=== PATIENT | female | born 1965 | race African-American/Black ===

== ENCOUNTER 2021-04-22 10:36 | Emergency (ER) | payer BC ==
[~2021-04-22] VITALS: Ht 172.7 cm; Wt 89.4 kg
--- NOTE | 2021-04-22 10:52 | PHYS DOC ---
General Adult EDM: Chief Complaint: ABDOMINAL PAIN HPI: HPI: Patient is a 56 year old female who presents with epigastric abdominal pain, radiating through to her back, symptoms began this morning, shortly prior to arrival. She reports mild nausea without vomiting. She denies constipation or diarrhea. She reports urinary urgency. She denies dysuria. She has had a previous hysterectomy. She denies vaginal discharge or bleeding. She has a history of frequent epigastric abdominal pain. A few months ago, when she lived in [facility], she was seen in an ER there, and at that time she had abdominal pain with nausea, vomiting and diarrhea. She was dehydrated. She had a CT of the abdomen and pelvis which was reportedly negative. She moved back here to the area about 5 weeks ago, she does not currently have a primary care physician. She also does report that she gives herself monthly enemas, though she denies constipation or diarrhea symptoms. She reports that she is just always done this. She did give herself an enema last night. Review of Systems: Review of Systems: Constitutional: Denies fever or chills. [] HENT: Denies nasal congestion or sore throat. [] Respiratory: Denies cough or shortness of breath. [] Cardiovascular: Denies chest pain or edema. [] GI: Epigastric abdominal pain, nausea, denies vomiting or bowel habit changes. : Denies dysuria. Reports urinary urgency and cloudy urine. Denies gross hematuria. Musculoskeletal: Back pain radiating from abdomen. Integument: Denies rash. [] Neurologic: Denies headache, focal weakness or sensory changes. [] Psychiatric: Denies depression or anxiety. [] Heart Score: C/O Chest Pain: No Risk Factors: Risk Factors: DM, Current or recent (<one month) smoker, HTN, HLP, family history of CAD, obesity. Risk Scores: Score 0 - 3: 2.5% MACE over next 6 weeks - Discharge Home Score 4 - 6: 20.3% MACE over next 6 weeks - Admit for Clinical Observation Score 7 - 10: 72.7% MACE over next 6 weeks - Early Invasive Strategies Physical Exam: PE: Constitutional: Well developed, well nourished, no acute distress, non-toxic appearance. [] HENT: Normocephalic, atraumatic, mucous membranes are moist Eyes: Sclera are clear and anicteric Neck: Normal range of motion, no tenderness, supple, no stridor. Trachea is midline Cardiovascular:Heart rate regular rhythm, +2 radial and dorsalis pedis pulses bilaterally Lungs & Thorax: Bilateral breath sounds clear to auscultation [] Abdomen: Abdomen is soft, nondistended. Epigastric tenderness to palpation, mild voluntary guarding. No rebound tenderness. No lower abdominal tenderness. No right or left upper quadrant tenderness. No palpable pulsatile mass. No palpable mass organomegaly. Left sided CVA tenderness. No flank or abdominal ecchymoses Skin: Warm, dry, no erythema, no rash. No jaundice Back: Left sided CVA tenderness. Full range of motion. No midline tenderness or step off. Extremities: No tenderness, no cyanosis, no clubbing, ROM intact, no edema. No calf tenderness Neurologic: Alert and oriented X 3, normal motor function, normal sensory function, no focal deficits noted. [] Psychologic: Affect normal, judgement normal, mood normal. [] EKG: EKG: [] Radiology/Procedures: Radiology/Procedures: IMAGING REPORT Signed PATIENT: NOAH JAIN MACCOUNT: [id number] : 1965 LOCATION: ER AGE: 56 SEX: F EXAM STATUS: REG ER ORD. PHYSICIAN: LIONEL MORA DO REASON: abdominal pain, pyelonephritis PROCEDURE: ABDOMEN COMPLETE EXAM: Abdomen sonogram. HISTORY: Pain. TECHNIQUE: Sonographic imaging of the abdomen was performed. COMPARISON: None. FINDINGS: The liver is upper normal in size. No focal hepatic lesion is seen. The gallbladder is unremarkable. The common bile duct is normal in caliber. The kidneys are normal in size. There is a 3.8 cm simple cyst within the upper pole the right kidney. Follow-up is not routinely performed for simple cysts. The spleen is normal in size. There is no hydronephrosis. The aorta is normal in caliber. The inferior cava is patent. IMPRESSION: 1. 3.8 cm simple appearing right renal cyst. 2. No acute sonographic finding. Electronically signed by: Bailey Hull MD (04/22/2021 12:45 PM) [id number] DICTATED and SIGNED BY: BAILEY HULL MD DATE: 04/22/21 [id number] 0 Course & Med Decision Making: Course & Med Decision Making Pertinent Labs and Imaging studies reviewed. (See chart for details) I discussed the findings, differential diagnosis and plan of care with the patient. She is given IV Toradol, IV Zofran, IV fluids. She is given a first dose of IV Rocephin. Clinically, she has pyelonephritis. Abdominal ultrasound is unremarkable. She understands that urine culture is pending, and should treatment change be required she should be notified. She is given resources to establish care with a primary care physician. She feels comfortable with the plan for discharge home. She is not vomiting, she is able to tolerate p.o. fluids and medications. Strict return precautions are given. She verbalizes understanding. Issac Disclaimer: Issac Disclaimer: This electronic medical record was generated, in whole or in part, using a voice recognition dictation system. Departure Departure Impression: Primary Impression: Acute pyelonephritis Disposition: HOME / SELF CARE / HOMELESS Condition: STABLE Patient Instructions: Pyelonephritis, Adult Additional Instructions: Take the full course of antibiotics. If there is any need to change your antibiotics based on your urine culture, you should be notified. Use the pain medicine and nausea medicine as needed. Make sure you stay well-hydrated. Return to the ER for uncontrolled vomiting, dehydration, more severe pain or for any other concerns. Please establish care with a primary care physician for follow-up. Scripts Cefdinir (CEFDINIR) 300 Mg Capsule 1 CAP PO BID, #14 CAP Prov: LIONEL MORA DO 04/22/21 Ondansetron Hcl (ZOFRAN) 4 Mg Tablet 4 MG PO PRN TID PRN for VOMITING, #20 TAB nausea/vomiting Prov: LIONEL MORA DO 04/22/21 Hydrocodone Bit/Acetaminophen (HYDROCODONE-APAP 5-325 ) 1 Tab Tablet 1 TAB PO PRN Q6HRS PRN for PAIN, #20 TAB 0 Refills Prov: LIONEL MORA DO 04/22/21 LIONEL MORA DO Apr 22, 2021 10:52
[2021-04-22] MEDS ORDERED: KETOROLAC 15 MG/ML VIAL. IVP ONE (11:15)
[2021-04-22] MEDS ORDERED: ONDANSETRON PF 4 MG/2 ML VIAL. IVP ONE (11:15)
[2021-04-22] MEDS ORDERED: IV NORMAL SALINE 1000ML BAG 1,000 ML IV ONE (11:15)
[2021-04-22 11:19] LABS: BILIRUBIN,URINE NEGATIVE (NEG); CLARITY,URINE CLEAR; COLOR,URINE YELLOW; NITRITE,URINE NEGATIVE (NEG); PH,URINE 6.5 (<5.0-8.0); PROTEIN,URINE NEGATIVE (NEG-TRACE); UROBILINOGEN,URINE 0.2 mg/dL (0.2 mg/dL)
[2021-04-22 11:25] LABS: BASO # 0.1 x10^3/uL (0.0-0.2); BASO % 1 % (0-3); EOS % 1 % (0-3); HEMATOCRIT 42.1 % (36.0-47.0); HEMOGLOBIN 13.7 g/dL (12.0-15.5); LYMPH # 1.1 x10^3/uL (1.0-4.8); LYMPH % 15 % (24-48); MEAN CORPUSCULAR HEMOGLOBIN 27 pg (25-35); MEAN CORPUSCULAR HGB CONC 33 g/dL (31-37); MEAN CORPUSCULAR VOLUME 83 fL (79-100); MONO # 0.6 x10^3/uL (0.0-1.1); MONO % 9 % (0-9); NEUT # 5.4 x10^3/uL (1.8-7.7); NEUT % 75 % (31-73); PLATELET COUNT 238 x10^3/uL (140-400); RED BLOOD COUNT 5.07 x10^6/uL (3.50-5.40); WHITE BLOOD COUNT 7.2 x10^3/uL (4.0-11.0)
[2021-04-22 11:29] LABS: BACTERIA,URINE MODERATE /HPF (0-FEW); WBC,URINE >40 /HPF (0-4)
[2021-04-22] MEDS ORDERED: KETOROLAC 30 MG/ML VIAL. IVP ONE (11:30)
[2021-04-22 11:35] LABS: CALCIUM 9.1 mg/dL (8.5-10.1); CREATININE 0.7 mg/dL (0.6-1.0); GFR 86.6; POTASSIUM 3.7 mmol/L (3.5-5.1)
[2021-04-22 11:40] LABS: ALBUMIN 3.8 g/dL (3.4-5.0); ALBUMIN/GLOBULIN RATIO 0.9 (1.0-1.7); TOTAL BILIRUBIN 0.5 mg/dL (0.2-1.0); TOTAL PROTEIN 8.1 g/dL (6.4-8.2)
[2021-04-22] MEDS ORDERED: cefTRIAXone IV Push 1 GM VIAL. IVP ONE (11:45)
--- NOTE | 2021-04-22 12:48 | RAD ---
EXAM: Abdomen sonogram. HISTORY: Pain. TECHNIQUE: Sonographic imaging of the abdomen was performed. COMPARISON: None. FINDINGS: The liver is upper normal in size. No focal hepatic lesion is seen. The gallbladder is unre markable. The common bile duct is normal in caliber. The kidneys are normal in size. There is a 3.8 c m simple cyst within the upper pole the right kidney. Follow-up is not routinely performed for simple cysts. The spleen is normal in size. There is no hydronephrosis. The aorta is normal in caliber. The inferior cava is patent. IMPRESSION: 1. 3.8 cm simple appearing right renal cyst. 2. No acute sonographic finding. Electronically signed by: Bailey Hull MD (04/22/2021 12:45 PM) [id number]
[2021-04-22] MEDS ORDERED: CEFD300C PO (13:49)
[2021-04-22] MEDS ORDERED: HYDR-2761 PO (13:49)
[2021-04-22] MEDS ORDERED: ONDA4TAB7 PO (13:49)
[2021-04-22 14:08] VITALS: BP 132/63
== END 2021-04-22 14:25 | disposition home or self-care (01) ==
LOC: ER 10:36
DX: N10 Acute pyelonephritis (principal)
CPT/HCPCS: 36415; 76700; 80053; 81001; 83690; 85025; 87086; 96361; 96374; 96375; 99285; J0696; J1885; J2405; J7030

== ENCOUNTER → 2021-05-30 | Outpatient (CLI) | payer BC ==
[~2021-05-30] MED LIST: CEFD300C PO; HYDR-2761 PO; ONDA4TAB7 PO
--- NOTE | 2021-06-11 16:32 | KCIC ---
Bilateral digital screening mammograms with 3-D tomosynthesis: Reason for examination: Routine screening. Comparison is made to previous studies dated 03/21/2020 and 12/30/2012. Bilateral mammograms in CC and oblique projections were obtained with 2-D imaging and 3-D tomosynthes is imaging on a Siemens Inspiration unit and reviewed on the workstation. Interpretation was made wit h the benefit of CAD. The skin and nipples show no abnormalities. No abnormal axillary lymph nodes are seen. The breast par enchyma is heterogeneously dense. (Breast density: Category C.) There are no dominant masses, suspici ous calcifications or architectural distortion. Impression: No evidence of malignancy. Recommend routine screening. Your patient's mammogram demonstrates that she has dense breast tissue (breast density category C or D), which could hide abnormalities, and if she has other risk factors for breast cancer that have bee n identified, she might benefit from supplemental screening tests that may be suggested by you as her ordering physician. Dense breast tissue, in and of itself, is a relatively common condition. Therefo re, this information is not provided to cause undue concern, but rather to raise your awareness and t o promote discussion with your patient regarding the presence of other risk factors, in addition to d ense breast tissue. Your patient's mammography results will be sent to her. BI-RAD Category 2: Benign. "Our facility is accredited by the [employer] Mammography Program." This patient's information has been entered into a reminder system for the patient to be notified wit h the results of her examination and a target date for the next mammogram. Electronically signed by: Blaire Gabriel MD (06/11/2021 4:29 PM) [id number]
== END ==
LOC: KCIC MAMMO 10:13
PROVIDERS: ATTEND Obstetrics & Gynecology
DX: Z12.31 Encounter for screening mammogram for malignant neoplasm of breast (principal)
CPT/HCPCS: 77063; 77067